=== PATIENT | male | born 1960 | race Caucasian/White ===

== ENCOUNTER 2017-07-22 08:37 | Emergency (ER) | payer BC ==
[2017-07-22 08:43] VITALS: BP 156/86; BMI 29.0
[2017-07-22] MEDS ORDERED: TORADOL 30 MG VIAL ONE (08:46)
[2017-07-22] MEDS ORDERED: TORADOL 30 MG VIAL IVP ONE (08:55)
[2017-07-22] MEDS ORDERED: NS 1000 ML 1,000 ML IV ONE (08:56)
[2017-07-22] MEDS ORDERED: NS 1000 ML 1,000 ML ONE (08:59)
[2017-07-22] MEDS ORDERED: MORPHINE SULFATE INJ 4 MG IVP ONE ×2 (09:07→10:42)
[2017-07-22] MEDS ORDERED: MORPHINE SULFATE INJ 4 MG ONE (09:08)
[2017-07-22 09:14] LABS: BASOPHILS # (AUTO) 0.1 X10^3/uL (0.0-0.1); BASOPHILS % (AUTO) 0.9 % (0.2-1.0); EOSINOPHILS % (AUTO) 0.4 % (0.9-2.9); HEMATOCRIT 45.4 % (42.0-54.0); HEMOGLOBIN 15.6 g/dL (13.5-18.0); LYMPHOCYTES # (AUTO) 1.7 X10^3/uL (1.3-2.9); LYMPHOCYTES % (AUTO) 20.3 % (21.0-51.0); MEAN CORPUSCULAR HEMOGLOBIN 30.2 pg (27.0-34.0); MEAN CORPUSCULAR HGB CONC 34.5 g/dL (33.0-35.0); MEAN CORPUSCULAR VOLUME 87.5 fL (80.0-100.0); MEAN PLATELET VOLUME 9.1 fL (7.4-11.0); MONOCYTES # (AUTO) 0.4 x10^3/uL (0.3-0.8); MONOCYTES % (AUTO) 4.2 % (0.0-13.0); NEUTROPHILS # (AUTO) 6.3 x10^3/uL (2.2-4.8); NEUTROPHILS % (AUTO) 74.2 % (42.0-75.0); PLATELET COUNT 230 X10^3/uL (150.0-450.0); RED BLOOD COUNT 5.19 X10^6/uL (4.7-6.0); RED CELL DISTRIBUTION WIDTH 13.7 % (11.6-16.5); WHITE BLOOD COUNT 8.4 X10^3/uL (3.6-10.0)
--- NOTE | 2017-07-22 09:18 | DR.GENAD ---
HPI - PCP Primary Care Physician: Misael España - Complaint/Symptoms Chief Complaint Doctors Comments: Patient states that he has a history of [place] stones last one five years ago. Chief Complaint:: "I started having pain in my lower right back. I feel like I have to pee but can only pee a little bit. This isn't the first one that I have had" - Source History Provided: Patient - Mode of Arrival Mode of Arrival: Ambulatory - Timing Onset of Chief Complaint: 07/22/17 PMH - PMH Past Medical History: Yes Past Medical History: Asthma, GERD, Kidney Stones Past Surgical History: No - Family History History of Family Medical Conditions: Yes Family Medical History: [place], Coronary Artery Disease, Hypertension - Social History Does patient currently use any type of tobacco product: No Have you used tobacco products in the last 12 months: No Type of Tobacco Use: None Does any household member use tobacco: No Alcohol Use: None Do you use any recreational Drugs:: No Lives With: Family Lives Where: Home - infectious screening In the last 2 months have you had wt loss of >10#?: NO Have you had fever, night sweats or hemotysis?: No Have you traveled outside the country in the last 6 months?: No Isolation: Standard ROS - Review of Systems Eyes: No Symptoms Reported ENTM: No Symptoms Reported Respiratoy: No Symptoms Reported Cardiovascular: No Symptoms Reported Gastrointestinal/Abdominal: No Symptoms Reported Genitourinary: Dysuria, Other (left flank pain) Neurological: No Symptoms Reported Musculoskeletal: No Symptoms Reported Integumentary: No Symptoms Reported Hematologic/Lymphatic: No Symptoms Reported Endocrine: No Symptoms Reported Psychiatric: No Symptoms Reported All Other Systems: Reviewed and Negative PE - Vital Signs Vitals: Temperature 97.4 F Pulse Rate 67 Respiratory Rate 18 Blood Pressure 156/86 O2 Sat by Pulse Oximetry 99 - General Limitations: No Limitations General Appearance: Alert, In No Apparent Distress - Head Head Exam: Normal Inspection, Atraumatic - Eyes Eye exam: Normal Appearance, PERRL, EOMI - ENT ENT Exam: Normal Exam External Ear Exam: Normal External Inspection TM/Canal Exam: Bilateral Normal Nose Exam: Normal Nose Exam Mouth Exam: Normal Inspection Throat Exam: Normal Inspection - Neck Neck Exam: Normal Inspection - Chest Chest Inspection: Normal Inspection - Respiratory Respiratory Exam: Normal Lung Sounds Bilat Respiratory Exam: Bilateral Clear to Auscultation - Cardiovascular Cardiovascular Exam: Regular Rate - Abdominal Exam Abdominal Exam: Normal Inspection, Normal Bowel Sounds Abdominal Tenderness: LUQ - Extremities Extremities Exam: Normal Inspection, Full ROM - Back Back Exam: Normal Inspection, Tenderness (posterior lateral lower back) - Neurologic Neurological Exam: Alert, Oriented X3, CN II-XII Intact - Psychiatric Psychiatric Exam: Normal Affect - Skin Skin Exam: Warm, Dry ROR - Labs Reviewed Result Diagrams: 07/22/17 09:00 07/22/17 09:00 Laboratory: WBC 8.4 X10^3/uL (3.6-10.0) 07/22/17 09:00 RBC 5.19 X10^6/uL (4.7-6.0) 07/22/17 09:00 Hgb 15.6 g/dL (13.5-18.0) 07/22/17 09:00 Hct 45.4 % (42.0-54.0) 07/22/17 09:00 MCV 87.5 fL (80.0-100.0) 07/22/17 09:00 MCH 30.2 pg (27.0-34.0) 07/22/17 09:00 MCHC 34.5 g/dL (33.0-35.0) 07/22/17 09:00 RDW 13.7 % (11.6-16.5) 07/22/17 09:00 Plt Count 230 X10^3/uL (150.0-450.0) 07/22/17 09:00 MPV 9.1 fL (7.4-11.0) 07/22/17 09:00 Neut % 74.2 % (42.0-75.0) 07/22/17 09:00 Lymph % 20.3 % (21.0-51.0) L 07/22/17 09:00 [place] % 4.2 % (0.0-13.0) 07/22/17 09:00 Eos % 0.4 % (0.9-2.9) L 07/22/17 09:00 Baso % 0.9 % (0.2-1.0) 07/22/17 09:00 Neut # 6.3 x10^3/uL (2.2-4.8) H 07/22/17 09:00 Lymph # 1.7 X10^3/uL (1.3-2.9) 07/22/17 09:00 [place] # 0.4 x10^3/uL (0.3-0.8) 07/22/17 09:00 Eos # 0.0 x10^3/uL (0.0-0.2) 07/22/17 09:00 Baso # 0.1 X10^3/uL (0.0-0.1) 07/22/17 09:00 Absolute Nucleated RBC 0.0 /100WBC 07/22/17 09:00 Sodium 142 mmol/L (136-145) 07/22/17 09:00 Corrected Sodium 143 mmol/L (136-145) 07/22/17 09:00 Potassium 4.2 mmol/L (3.5-5.1) 07/22/17 09:00 Chloride 107 mmol/L (98-107) 07/22/17 09:00 Carbon Dioxide 27.8 mmol/L (21-32) 07/22/17 09:00 BUN 11 mg/dL (7-18) 07/22/17 09:00 Creatinine 1.17 mg/dL (0.70-1.30) 07/22/17 09:00 Est GFR (MDRD) Af Amer > 60 (>60) 07/22/17 09:00 Est GFR (MDRD) Non-Af > 60 (>60) 07/22/17 09:00 Glucose 133 mg/dL (65-99) H 07/22/17 09:00 Calcium 9.5 mg/dL (8.5-10.1) 07/22/17 09:00 Corrected Calcium TNP 07/22/17 09:00 Total Bilirubin 0.70 mg/dL (0.2-1.0) 07/22/17 09:00 AST 19 Units/L (15-37) 07/22/17 09:00 ALT 30 Units/L (12-78) 07/22/17 09:00 Alkaline Phosphatase 74 Units/L (46-116) 07/22/17 09:00 Total Protein 8.0 g/dL (6.4-8.2) 07/22/17 09:00 Albumin 4.1 g/dL (3.4-5.0) 07/22/17 09:00 Globulin 3.9 g/dL (2.5-4.5) 07/22/17 09:00 Albumin/Globulin Ratio 1.1 Ratio (1.1-2.1) 07/22/17 09:00 Specimen Type Clean catch urine 07/22/17 10:00 Urine Color Yellow (YELLOW) 07/22/17 10:00 Urine Appearance Hazy (CLEAR) 07/22/17 10:00 Urine pH 5.0 (5.0 - 8.0) 07/22/17 10:00 Ur Specific [place] 1.025 (1.000-1.030) 07/22/17 10:00 Urine Protein 2+ (NEGATIVE) 07/22/17 10:00 Urine Glucose (UA) Negative (NEGATIVE) 07/22/17 10:00 Urine Ketones 1+ (NEGATIVE) 07/22/17 10:00 Urine Occult Blood 5+ (NEGATIVE) 07/22/17 10:00 Urine Nitrite Negative (NEGATIVE) 07/22/17 10:00 Urine Bilirubin Negative (NEGATIVE) 07/22/17 10:00 Urine Urobilinogen Normal (NORMAL) 07/22/17 10:00 Ur Leukocyte Esterase 1+ (NEGATIVE) 07/22/17 10:00 Urine RBC 50 - 75 /HPF (NEGATIVE) 07/22/17 10:00 Urine WBC 01 - 03 /HPF (NEGATIVE) 07/22/17 10:00 Ur Squamous Epith Cells Rare /HPF (NEGATIVE) 07/22/17 10:00 Amorphous Sediment 2+ /HPF (NEGATIVE) 07/22/17 10:00 Urine Bacteria Negative /HPF (NEGATIVE) 07/22/17 10:00 Urine Mucus Moderate /HPF (NEGATIVE) 07/22/17 10:00 Ur Culture Indicated? No/not indicated 07/22/17 10:00 - XRAY XRAY Interpreted by: Radiologist (CT Abd/Pelv:...Both kidneys are homgenous without contour deforming masses. There is mild right hydronephrosis and hydroureter. No radiopaque renal calculi are are seen within the right ureter. There is no left hydronephrosis. No renal calculi are demonstrated. Pelvis: There is a 2mm calculus within the dependent portion of bladder likely a recentyl passed right renal calculus peer.) - Diagnosis Discharge Problem: Hydroureter Hydronephrosis Qualifiers: Hydronephrosis type: with renal and ureteral calculous obstruction Qualified Code(s): N13.2 - Hydronephrosis with renal and ureteral calculous obstruction - Discharge Plan Condition: Stable - Follow ups/Referrals Follow ups/Referrals: Debbi ESPAÑA [Primary Care Provider] - 3 days - Instructions
[2017-07-22 09:21] LABS: ALANINE AMINOTRANSFERASE 30 Units/L (12-78); ALBUMIN 4.1 g/dL (3.4-5.0); ALKALINE PHOSPHATASE 74 Units/L (46-116); ASPARTATE AMINO TRANSFERASE 19 Units/L (15-37); BLOOD UREA NITROGEN 11 mg/dL (7-18); CALCIUM 9.5 mg/dL (8.5-10.1); CARBON DIOXIDE 27.8 mmol/L (21-32); CHLORIDE 107 mmol/L (98-107); COR NA(FOR HYPERGLY) 143 mmol/L (136-145); CREATININE 1.17 mg/dL (0.70-1.30); SODIUM 142 mmol/L (136-145); eGFR BLACK RACES > 60 (>60); eGFR NON BLACK RACES > 60 (>60)
[2017-07-22 11:32] LABS: BILIRUBIN,URINE NEGATIVE (NEGATIVE); BLOOD/HEMOGLOBIN,URINE 5+ (NEGATIVE); GLUCOSE, URINE NEGATIVE (NEGATIVE); KETONES,URINE 1+ (NEGATIVE); LEUKOCYTE ESTERASE ,URINE 1+ (NEGATIVE); NITRITES,URINE NEGATIVE (NEGATIVE); PROTEIN,URINE 2+ (NEGATIVE); UROBILINOGEN,URINE NORMAL (NORMAL)
[2017-07-22 11:42] LABS: APPEARANCE,URINE HAZY (CLEAR); COLOR,URINE YELLOW (YELLOW); RBC,URINE 50 - 75 /HPF (NEGATIVE); SQUAMOUS EPITHELIAL CELL,UR RARE /HPF (NEGATIVE)
--- NOTE | 2017-07-22 11:42 | CT ---
HISTORY: Right flank pain, dysuria Study: CT abdomen and pelvis without contrast Comparison: None Technique: Multiple axial images of the abdomen and pelvis were obtained from the lung bases to the pubic symphy sis without the administration of IV contrast. Automated exposure control (AEC) was utilized to adju st the MA and/or kV according to patient size. Findings: There are faint ground-glass opacities in both lung bases. There is moderate enlargement of the cardi ac silhouette. Abdomen: Please note that the lack of intravenous contrast limits sensitivity for detection of parenchymal les ions. The liver appears homogeneous without contour deforming masses. The gallbladder is present and nondi stended. There is no intrahepatic or extrahepatic bile duct dilatation. The spleen, pancreas, and b ilateral adrenal glands appear normal. Both kidneys are homogenous without contour deforming masses. There is mild right hydronephrosis and hydroureter. No radiopaque renal calculi are seen within the right ureter. There is no left hydronep hrosis.. No renal calculi are demonstrated. The stomach is unremarkable. The small bowel and colon are nondistended. The appendix is of normal caliber without adjacent inflammatory changes. The abdominal aorta is of normal caliber. There is no free fluid or free intraperitoneal air. Pelvis: There is a 2 mm calculus within the dependent portion of bladder likely a recently passed right renal calculus peer. The rectum and sigmoid colon appear unremarkable. There is no free fluid in the pelv is. No acute osseous abnormalities are identified. IMPRESSION: 1. Mild right hydronephrosis and hydroureter. There is a 2 mm calculus noted within the bladder, lik bear a recently passed stone. No radiopaque calculi are seen within the ureter or kidneys. 2. Cardiomegaly with mild dependent bibasilar ground-glass opacities. Findings may be secondary to pn eumonitis or mild pulmonary edema. 3.. Other findings as above Reported By:
[2017-07-22 11:43] LABS: AMORPHOUS SEDIMENT,UR 2+ /HPF (NEGATIVE); BACTERIA,URINE NEGATIVE /HPF (NEGATIVE); MUCUS,URINE MODERATE /HPF (NEGATIVE)
== END 2017-07-22 12:02 | disposition home or self-care (01) ==
LOC: ER 08:48
DX: N13.2 Hydronephrosis with renal and ureteral calculous obstruction (principal); N13.4 Hydroureter; R10.12 Left upper quadrant pain
CPT/HCPCS: 36415; 74150; 80053; 81001; 85025; 96365; 96374; 96375; 99283; A4222; J1885; J2270